=== PATIENT | male | born 1980 | race Caucasian/White ===

== ENCOUNTER → 2018-01-16 | Outpatient (CLI) | payer OTHER ==
--- NOTE | 2018-01-16 13:49 | Diagnostic Imaging Report ---
EXAM: Scrotal Ultrasound with Duplex INDICATION: \S\TESTICULAR NODULE COMPARISON: None TECHNIQUE: Transverse and longitudinal images were obtained of the scrotum with grayscale imaging, color Doppler and spectral waveform analysis. FINDINGS: Right testis: Size: 3.7 x 2 x 3.2 cm, normal in size. Echogenicity: Normal Mass/Cysts: None Left testis: Size: 3.6 x 1.8 x 2.8 cm, normal in size. Echogenicity: Normal Mass/Cysts: None Epididymis: Appearance: Normal in size without increased vascularity. Mass/Cysts: None Extratesticular: Masses: None. 0.3 x 0.2 x 0.3 cm anechoic area abutting the lateral right testicle, likely a tunica cyst. Hydrocele: None Varicocele: None Doppler: Normal arterial flow to both testes and symmetrical flow on color Doppler evaluation is seen. No evidence of testicular torsion. IMPRESSION: 1. No evidence of testicular torsion. 2. 0.3 cm cystic structure abutting the lateral right testicle, probably a tunica cyst. Signed by: Dr. Duy Rodriguez MD on 01/16/2018 1:45 PM
== END ==
LOC: US 11:27
PROVIDERS: ATTEND Family Medicine
DX: N50.89 Other specified disorders of the male genital organs (principal)
CPT/HCPCS: 76870; 93976